=== PATIENT | female | born 1950 | race Caucasian/White ===

== ENCOUNTER → 2017-11-26 | Outpatient (CLI) | payer MEDICARE ==
[~2017-11-26] MED LIST: APIX5TAB PO; DIGO125T PO; DILT60TA30 PO; PRAV20TA2 PO; THYR30TA PO
== END ==
LOC: CVU 11:35
PROVIDERS: ATTEND Internal Medicine Cardiovascular Disease
DX: I07.1 Rheumatic tricuspid insufficiency (principal); I10 Essential (primary) hypertension; I48.91 Unspecified atrial fibrillation; E78.5 Hyperlipidemia, unspecified
CPT/HCPCS: 93306

== ENCOUNTER → 2018-02-01 | Outpatient (CLI) | payer MEDICARE, OTHER ==
[~2018-02-01] MED LIST changes: +REGADENOSON 0.4 MG/5 ML SYRINGE ONE
== END | disposition home or self-care (01) ==
LOC: RAD 07:09
PROVIDERS: ATTEND Nurse Practitioner Family
DX: I48.91 Unspecified atrial fibrillation (principal)
CPT/HCPCS: 78452; 93017; A9502; J2785

== ENCOUNTER 2018-06-09 09:58 | Day surgery (SDC) | payer MEDICARE, OTHER ==
[~2018-06-09] VITALS: Ht 172.7 cm; Wt 77.3 kg
[~2018-06-09 09:58] MED LIST changes: -REGADENOSON 0.4 MG/5 ML SYRINGE ONE
[2018-06-09 10:54] VITALS: BP 115/67
[2018-06-09] MEDS ORDERED: POTA10CA PO (11:10)
[2018-06-09] MEDS ORDERED: FAMO20TA7 PO (11:10)
[2018-06-09] MEDS ORDERED: COLC0.6T47 PO (11:10)
[2018-06-09] MEDS ORDERED: SENN-87 PO (11:10)
[2018-06-09] MEDS ORDERED: AMIO200T42 PO (11:10)
[2018-06-09] MEDS ORDERED: ESCI5TAB7 PO (11:10)
[2018-06-09] MEDS ORDERED: FURO-92 PO (11:10)
[2018-06-09] MEDS ORDERED: HYDR-3245 PO (11:10)
[2018-06-09 11:12] LABS: BASOPHILS # (AUTO) 0.02 x10^3/uL (0-0.1); BASOPHILS % (AUTO) 0 % (0-1); EOSINOPHILS # (AUTO) 0.06 x10^3/uL (0-0.4); EOSINOPHILS % (AUTO) 1 % (1-7); LYMPHOCYTES # (AUTO) 1.01 x10^3/uL (1-3.4); LYMPHOCYTES % (AUTO) 15 % (22-44); MD NO; MEAN CORPUSCULAR HEMOGLOBIN 30.7 pg (27.0-34.8); MEAN CORPUSCULAR HGB CONC 33.8 g/dL (32.4-35.8); MEAN CORPUSCULAR VOLUME 90.9 fL (80-100); MEAN PLATELET VOLUME 7.5 fL (7.4-10.4); MONOCYTES # (AUTO) 0.51 x10^3/uL (0.2-0.8); MONOCYTES % (AUTO) 8 % (2-9); NEUTROPHILS # (AUTO) 5.23 x10^3/uL (1.8-6.8); NEUTROPHILS % (AUTO) 76 % (42-75); PLATELET COUNT 369 x10^3/uL (130-400); RED BLOOD COUNT 3.54 x10^6/uL (3.82-5.3); RED CELL DISTRIBUTION WIDTH 14.7 % (9.6-15.2)
[2018-06-09 11:19] LABS: ANION GAP 6 mmol/L (5-15); CALCIUM 10.1 mg/dL (8.5-10.1); CHLORIDE 104 mmol/L (98-107); CREATININE 0.96 mg/dL (0.55-1.02)
== END 2018-06-09 13:00 | disposition home or self-care (01) ==
LOC: CACL 09:58
PROVIDERS: ATTEND Internal Medicine Cardiovascular Disease
DX: I48.91 Unspecified atrial fibrillation (principal); I10 Essential (primary) hypertension; Z88.1 Allergy status to other antibiotic agents
CPT/HCPCS: 36415; 80048; 85025; 92960; 93005

== ENCOUNTER 2018-07-15 06:49 | Observation (INO) | payer MEDICARE, OTHER ==
[2018-07-13 12:08] VITALS: BP 142/76
[2018-07-13 12:38] LABS: BASOPHILS # (AUTO) 0.05 x10^3/uL (0-0.1); BASOPHILS % (AUTO) 1 % (0-1); EOSINOPHILS # (AUTO) 0.03 x10^3/uL (0-0.4); EOSINOPHILS % (AUTO) 0 % (1-7); LYMPHOCYTES # (AUTO) 1.26 x10^3/uL (1-3.4); LYMPHOCYTES % (AUTO) 16 % (22-44); MD NO; MEAN CORPUSCULAR HEMOGLOBIN 29.7 pg (27.0-34.8); MEAN PLATELET VOLUME 7.6 fL (7.4-10.4); MONOCYTES # (AUTO) 0.48 x10^3/uL (0.2-0.8); MONOCYTES % (AUTO) 6 % (2-9); NEUTROPHILS # (AUTO) 6.06 x10^3/uL (1.8-6.8); NEUTROPHILS % (AUTO) 77 % (42-75); PLATELET COUNT 377 x10^3/uL (130-400); RED BLOOD COUNT 3.61 x10^6/uL (3.82-5.3); RED CELL DISTRIBUTION WIDTH 14.4 % (9.6-15.2)
[2018-07-13 12:49] LABS: ALANINE AMINOTRANSFERASE 20 U/L (12-78); ALBUMIN 3.3 g/dL (3.4-5.0); ANION GAP 6 mmol/L (5-15); CALCIUM 9.1 mg/dL (8.5-10.1); CHLORIDE 108 mmol/L (98-107); CREATININE 1.06 mg/dL (0.55-1.02)
[2018-07-13 12:51] LABS: ALKALINE PHOSPHATASE 111 U/L (45-117); BILIRUBIN,TOTAL 0.4 mg/dL (0.2-1.0); TOTAL PROTEIN 7.7 g/dL (6.4-8.2)
[~2018-07-15] VITALS: Ht 172.7 cm; Wt 78.1 kg
[~2018-07-15 06:49] MED LIST changes: +AMIO200T42 PO; +COLC0.6T47 PO; +ESCI5TAB7 PO; +FAMO20TA7 PO; +FURO-92 PO; +HYDR-3245 PO; +POTA10CA PO; +SENN-88 PO
[2018-07-15] MEDS ORDERED: SODIUM CHLORIDE 0.9% 1,000 ML IV SCH (07:06)
[2018-07-15] MEDS ORDERED: MIDAZOLAM 1 MG/ML, 5ML ONE (07:26)
[2018-07-15] MEDS: MIDAZOLAM 1 MG/ML, 5ML IVPush ONE (07:30)
[2018-07-15] MEDS ORDERED: MIDAZOLAM 1 MG/ML, 2ML ONE (07:33)
[2018-07-15] MEDS ORDERED: FENTANYL PF 250 MCG/5ML ONE (07:33)
[2018-07-15] MEDS ORDERED: MIDAZOLAM 1 MG/ML, 5ML IVPush ONE (08:00)
[2018-07-15] MEDS ORDERED: ONDANSETRON 2MG/ML, 2ML ONE (08:13)
[2018-07-15] MEDS ORDERED: SUCCINYLCHOLINE 20 MG/ML, 10ML ONE (08:13)
[2018-07-15] MEDS ORDERED: ROCURONIUM 10 MG/ML,10ML ONE (08:13)
[2018-07-15] MEDS ORDERED: PROPOFOL 10 MG/ML, 20ML ONE ×2 (08:13)
[2018-07-15] MEDS ORDERED: DEXAMETHASONE 4 MG/ML, 1ML ONE (08:13)
[2018-07-15] MEDS ORDERED: LIDOCAINE/PF 1%, 30ML ONE (10:15)
[2018-07-15] MEDS ORDERED: PROTAMINE SULFATE 10 MG/ML, 5ML ONE (10:15)
[2018-07-15] MEDS ORDERED: ZOLPIDEM 5MG TABLET PO PRN (10:30)
[2018-07-15] MEDS ORDERED: ACETAMINOPHEN 325 MG TABLET PO PRN (10:30)
[2018-07-15] MEDS: APIXABAN 5 MG TABLET PO SCH ×2 (10:50→20:27)
[2018-07-15] MEDS ORDERED: APIXABAN 5 MG TABLET ONE (10:50)
[2018-07-15] MEDS ORDERED: MORPHINE SULFATE 4 MG/ML, 1ML IVPush PRN (11:00)
[2018-07-15] MEDS ORDERED: EPHEDRINE 50 MG/ML, 1ML IM PRN (11:00)
[2018-07-15] MEDS ORDERED: DIPHENHYDRAMINE 50 MG/ML, 1ML IVPush PRN (11:00)
[2018-07-15] MEDS ORDERED: ONDANSETRON ODT 8 MG PO PRN (11:00)
[2018-07-15] MEDS ORDERED: PROMETHAZINE 25 MG SUPP PR PRN (11:00)
[2018-07-15] MEDS ORDERED: PROMETHAZINE 25 MG/ML, 1ML IV PRN (11:00)
[2018-07-15] MEDS ORDERED: MIDAZOLAM 1 MG/ML, 2ML IV PRN (11:00)
[2018-07-15] MEDS ORDERED: OXYcodone 5 MG/5 ML ORAL.SOL UDC PO PRN (11:00)
[2018-07-15] MEDS ORDERED: EPHEDRINE 50 MG/ML, 1ML IVPush PRN (11:00)
[2018-07-15] MEDS ORDERED: PROMETHAZINE 12.5 MG SUPP PR PRN (11:00)
[2018-07-15] MEDS ORDERED: FENTANYL PF 100 MCG/2ML IV PRN (11:00)
[2018-07-15 13:00] VITALS: BP 104/68
[2018-07-15] MEDS ORDERED: PRAVASTATIN 20 MG TABLET PO SCH (21:00)
[2018-07-15 21:32] VITALS: BP 105/64
[2018-07-16 02:53] VITALS: BP 101/62
[2018-07-16] MEDS ORDERED: THYROID 30 MG TABLET PO SCH (06:00)
[2018-07-16 08:08] VITALS: BP 103/66
[2018-07-16] MEDS ORDERED: ACET325T14 PO (08:22)
[2018-07-16] MEDS: APIXABAN 5 MG TABLET PO SCH (09:39)
== END 2018-07-16 11:17 | disposition home or self-care (01) ==
LOC: CACL 06:49 → 5SO 11:51 → CACL 23:43
PROVIDERS: ADMIT Internal Medicine Cardiovascular Disease; ATTEND Internal Medicine Cardiovascular Disease
DX: I48.91 Unspecified atrial fibrillation (principal); I48.92 Unspecified atrial flutter; I45.9 Conduction disorder, unspecified; I10 Essential (primary) hypertension
CPT/HCPCS: 36415; 71046; 80053; 85025; 85347; 93308; 93321; 93613; 93655; 93656; 93662; 96374; C1730; C1731; C1732; C1759; C1766; C1893; C1894; G0378; J0330; J1100; J2250; J2405; J2704; J2720; J3010; 93325; J3490